=== PATIENT | male | born 1970 | race Caucasian/White ===

== ENCOUNTER 2016-12-16 08:45 | Day surgery (SDC) | payer BC ==
[~2016-12-16 08:45] MED LIST: Buffered Lidocaine 1% SYR 3ML* 3 ML/SYR SYRINGE INTRADERM ONE; Famotidine IV* 10 MG/ML 2 ML (20 mg) IV ONE
[2016-12-16] MEDS ORDERED: ceFAZolin 2 GM PREMIX (*) 2 GM/50 ML BAG IVPB ONE (09:09)
[2016-12-16] MEDS ORDERED: Famotidine IV* 10 MG/ML 2 ML (20 mg) ONE (09:09)
[2016-12-16] MEDS ORDERED: fentaNYL* 50 MCG/ML 2 ML VIAL (100 MCG VIAL) ONE (12:59)
[2016-12-16] MEDS ORDERED: Midazolam* 1 MG/ML 5 ML VIAL (5 MG) ONE (12:59)
[2016-12-16] MEDS ORDERED: Propofol* 10 MG/ML 20 ML BTL IV PUSH ONE (13:06)
[2016-12-16] MEDS ORDERED: HYDROcodone/ACETAMIN 5-325 MG* 1 TAB PO PRN (13:25)
[2016-12-16] MEDS ORDERED: Midazolam* 1 MG/ML 2 ML VIAL (2 MG) ONE (13:31)
--- NOTE | 2016-12-16 14:13 | SURGPN ---
Brief Operative Note - Surgery Procedures: OPERATIVE REPORT PRE-OP: Umbilical hernia POST-OP: Same PROCEDURE: Open repair with mesh of umbilical hernia SURGEON: MD Iza ANESTHESIA:Local with MAC Dr. Gilmore ASST: HAJA Lobo IVF: 1 liter of crystalloid EBL: min SPECIMEN: none DRAIN: none WOUND CLASS: One COMPLICATIONS: none TO PACU
[2016-12-16 14:46] VITALS: BP 149/94
--- NOTE | 2016-12-17 11:38 | OP ---
DATE OF OPERATION: 12/16/16 [facility] DATE OF : 74 SURGEON: Chip Couch MD DICE TABLE PERSON: HAJA Jaime ANESTHESIOLOGIST: Dr. Gilmore. ANESTHESIA: Local with monitored anesthesia care. PRE-OP DIAGNOSIS: Umbilical hernia. POST-OP DIAGNOSIS: Umbilical hernia. OPERATIVE PROCEDURE: Open repair with 6.4 cm Bard dual mesh circular mesh placed preperitoneally. ESTIMATED BLOOD LOSS: Minimal. IV FLUIDS: One liter of crystalloid. SPECIMENS: None. WOUND CLASSIFICATION: I. COMPLICATIONS: None. DRAINS: None. DESCRIPTION OF PROCEDURE: Written informed consent was obtained, the abdomen was marked with indelible ink and preoperative antibiotics were administered. The patient was taken to the operating room and placed in the supine position. Sequential compression devices and a warming blanket were applied. Anesthesia was administered and the abdomen was widely prepped and draped in the usual sterile fashion. Time-out verification was completed. Next, 0.25% Marcaine mixed with 1% lidocaine with epinephrine was infiltrated extensively around the umbilicus and a semi-circular incision just inferior to the umbilical fold was fashioned and carried down to the midline fascia. The umbilical skin was then encircled with one quarter-inch [place] drain, and this area of the skin was excised off the protruding preperitoneal fat using a 15 blade knife with care to prevent injury to the skin or keyholing. Once this was complete, I identified the fascia circumferentially around the hernia, which was healthy and intact, and the hernia defect appeared to be about 2 cm in size. I then developed a preperitoneal space by freeing up the attachments to the fascia, and using a combination of sharp and blunt dissection, this space was developed nicely. I did not enter the peritoneal cavity at any point. After measuring the hernia size and the area of undermining, it was felt that a 6.4 cm diameter mesh would be suitable. This was placed into the preperitoneal space and it had unfolded nicely without wrinkling and was sutured to the anterior abdominal wall in the superior and inferior positions using the straps with a horizontal 0 Polysorb suture in each position. I also sutured the two lateral areas with transfascial 0 Polysorb sutures as well. Hemostasis was assured. The [place] fascia was closed with interrupted 0 Polysorb suture. The skin was approximated with layers of 3-0 and 4-0 Polysorb suture. Steri-Strips and sterile dressings were applied. The patient tolerated the procedure well and was taken to the recovery room in stable condition. [id number] #: [id number] PERRY
== END 2016-12-16 15:03 | disposition home or self-care (01) ==
LOC: OR 08:45
PROVIDERS: ATTEND Surgery
DX: K42.9 Umbilical hernia without obstruction or gangrene (principal); I10 Essential (primary) hypertension; M19.90 Unspecified osteoarthritis, unspecified site; Z85.47 Personal history of malignant neoplasm of testis
CPT/HCPCS: C1781; J0690; J2250; J2704; J3010